=== PATIENT | male | born 1995 | race Caucasian/White ===

== ENCOUNTER 2024-08-23 21:56 | Inpatient (IN) | payer SELFPAY ==
[~2024-08-23] VITALS: Ht 167.6 cm; Wt 58.5 kg
[2024-08-23] MEDS ORDERED: SODIUM CHLORIDE 0.9% 1,000 ML IV ONE (22:45)
[2024-08-24 00:17] LABS: BASOPHILS % 0.6 % (0.0-2.0); EOSINOPHILS % 0.7 % (0.0-5.0); HEMATOCRIT. 43.2 % (42.0-52.0); LYMPHOCYTES % 23.4 % (20.0-50.0); MEAN CORPUSCULAR HEMOGLOBIN 34.1 pg (28.0-32.0); MEAN CORPUSCULAR HGB CONC 34.6 g/dL (31.0-37.0); MEAN CORPUSCULAR VOLUME 98.7 fL (80.0-94.0); MEAN PLATELET VOLUME 7.3 fl (7.4-10.4); MONOCYTES % 6.5 % (2.0-8.0); NEUTROPHILS % 68.8 % (40.0-76.0); PLATELET 237 x1000/uL (130-400); RED BLOOD CELL COUNT 4.38 mill/uL (4.7-6.1); RED CELL DISTRIBUTION WIDTH 13.6 % (11.6-14.6); WHITE BLOOD COUNT 7.4 x1000/uL (4.5-11.0)
[2024-08-24 00:27] LABS: CHLORIDE 108 mEq/L (98-107); POTASSIUM 3.9 mEq/L (3.5-5.1); SODIUM 145 mEq/L (136-145)
[2024-08-24 00:28] LABS: CARBON DIOXIDE 26 mEq/L (21-32)
[2024-08-24 00:29] LABS: CALCIUM 8.9 mg/dL (8.7-10.4)
[2024-08-24 00:33] LABS: CREATININE 0.7 mg/dL (0.6-1.3)
[2024-08-24 00:34] LABS: ETHANOL BLOOD 300 mg/dL (<10); GLUCOSE 110 mg/dL (70-105); UREA NITROGEN BLOOD 5 mg/dL (9-23)
[2024-08-24 00:35] LABS: ACETAMINOPHEN < 2 ug/mL (10-30); ALANINE AMINOTRANSFERASE 16 IU/L (10-49); ALBUMIN 4.3 g/dL (3.2-4.8); ASPARTATE AMINOTRANSFERASE 30 IU/L (<34)
[2024-08-24 00:36] LABS: AMMONIA 30 uMol/L (<32); BILIRUBIN TOTAL 0.4 mg/dL (0.1-1.0); PROTEIN TOTAL 7.3 g/dL (6.0-8.3)
[2024-08-24 00:41] LABS: BILIRUBIN DIRECT < 0.1 mg/dL (<=3.0); TROPONIN I HIGH SENSITIVITY < 4 ng/L (3.0-53)
[2024-08-24] MEDS ORDERED: HYDRALAZINE 20MG/ML VIAL IV PRN (02:15)
[2024-08-24] MEDS: SODIUM CHLORIDE 0.9% 1,000 ML IV SCH (02:15)
[2024-08-24] MEDS ORDERED: ONDANSETRON HCL 4MG/2ML INJ IV PRN (02:15)
[2024-08-24] MEDS ORDERED: IPRATROPIUM/ALBUTEROL 0.5-3(2.5)MG/3ML NEB NEB PRN (02:15)
[2024-08-24] MEDS ORDERED: LORAZEPAM 2MG/ML INJ IV PRN (02:15)
[2024-08-24] MEDS ORDERED: ZOLPIDEM TARTRATE 5MG TABLET PO PRN (02:15)
[2024-08-24] MEDS ORDERED: CLONIDINE 0.1MG TABLET PO PRN (02:15)
[2024-08-24] MEDS ORDERED: ACETAMINOPHEN 325MG TABLET PO PRN (02:15)
[2024-08-24 02:52] LABS: TROPONIN I HIGH SENSITIVITY < 4 ng/L (3.0-53)
[2024-08-24] MEDS: MVI, ADULT NO.1 10 ML, FOLIC ACID 1 MG, THIAMINE HCL 100 MG in SODIUM CHLORIDE 0.9% 1,0... IV SCH (03:30)
[2024-08-24 04:00] VITALS: BP 102/58; PULSE 75; RESP 16; TEMP 37.1
[2024-08-24 08:25] VITALS: BP 90/51; PULSE 72; RESP 20; TEMP 36.6; O2SAT 97
[2024-08-24] MEDS: PANTOPRAZOLE SODIUM 40 MG/VIAL IV SCH (08:29)
[2024-08-24] MEDS: ENOXAPARIN 40MG/0.4ML SYR SUBCUT SCH (08:30)
[2024-08-24] MEDS: HYDROCODONE/ACETAMINOPHEN 5/325MG TABLET PO PRN (09:22)
[2024-08-24 11:24] LABS: TROPONIN I HIGH SENSITIVITY < 4 ng/L (3.0-53)
[2024-08-24 12:09] VITALS: BP 91/53; PULSE 77; RESP 19; TEMP 36.7; O2SAT 99
[2024-08-24 13:50] VITALS: BP 117/82; PULSE 77
[2024-08-24 16:28] VITALS: BP 97/58; PULSE 71; RESP 20; TEMP 36.8; O2SAT 98
[2024-08-24 17:37] LABS: TROPONIN I HIGH SENSITIVITY < 4 ng/L (3.0-53)
[2024-08-24 20:44] VITALS: BP 113/64; PULSE 85; RESP 19; TEMP 36.4; O2SAT 96
[2024-08-25] VITALS (7 sets, daily range): BP systolic 96–129; BP diastolic 39–83; PULSE 49–77; RESP 19–20; TEMP 35.8–36.7; O2SAT 97–98
[2024-08-25 09:02] LABS: BASOPHILS % 0.8 % (0.0-2.0); EOSINOPHILS % 2.9 % (0.0-5.0); HEMATOCRIT. 38.4 % (42.0-52.0); HEMOGLOBIN. 13.3 g/dL (14.0-18.0); LYMPHOCYTES % 36.5 % (20.0-50.0); MEAN CORPUSCULAR HEMOGLOBIN 33.9 pg (28.0-32.0); MEAN CORPUSCULAR HGB CONC 34.6 g/dL (31.0-37.0); MEAN CORPUSCULAR VOLUME 97.8 fL (80.0-94.0); MEAN PLATELET VOLUME 8.1 fl (7.4-10.4); MONOCYTES % 9.9 % (2.0-8.0); NEUTROPHILS % 49.9 % (40.0-76.0); PLATELET 201 x1000/uL (130-400); RED BLOOD CELL COUNT 3.92 mill/uL (4.7-6.1); RED CELL DISTRIBUTION WIDTH 13.1 % (11.6-14.6); WHITE BLOOD COUNT 4.8 x1000/uL (4.5-11.0)
[2024-08-25 09:05] LABS: CALCIUM 8.8 mg/dL (8.7-10.4); CARBON DIOXIDE 29 mEq/L (21-32); CHLORIDE 101 mEq/L (98-107); POTASSIUM 3.6 mEq/L (3.5-5.1); SODIUM 138 mEq/L (136-145)
[2024-08-25 09:11] LABS: CREATININE 0.6 mg/dL (0.6-1.3); GLUCOSE 85 mg/dL (70-105); UREA NITROGEN BLOOD 6 mg/dL (9-23)
[2024-08-25] MEDS ORDERED: THIA100T72 MT (17:55)
== END 2024-08-25 19:50 | disposition home or self-care (01) | DRG 812 ==
LOC: EDBD 21:56 → ER 21:56 → 7WST 08-24 01:03 → EDBEDREQ 08-24 01:28 → EDBEDREQDT 08-24 01:28 → EDBEDREQTM 08-24 01:28
PROVIDERS: ADMIT Internal Medicine; ATTEND Internal Medicine
DX: T51.8X1A Toxic effect of other alcohols, accidental (unintentional), initial encounter (principal); G92.9 Unspecified toxic encephalopathy; F10.129 Alcohol abuse with intoxication, unspecified; S02.2XXA Fracture of nasal bones, initial encounter for closed fracture; X58.XXXA Exposure to other specified factors, initial encounter; Z79.899 Other long term (current) drug therapy; Y92.89 Other specified places as the place of occurrence of the external cause; Y93.89 Activity, other specified; Y99.8 Other external cause status; Y90.9 Presence of alcohol in blood, level not specified
CPT/HCPCS: 36415; 71045; 80048; 80076; 80307; 80320; 80329; 82140; 84484; 85025; 93005; 99285; J1650; J2470; J3411; J3490; J7030; G0480